=== PATIENT | female | born 1980 | race Two or more races ===

== ENCOUNTER 2020-10-20 07:19 | Outpatient (CLI) | payer OTHER | END 2020-10-20 07:33 | disposition home or self-care (01) | LOC: LAB 07:19 → EDBD 07:19 → LAB 07:33 | PROVIDERS: ATTEND Internal Medicine Rheumatology | DX: D64.89 Other specified anemias (principal); N18.2 Chronic kidney disease, stage 2 (mild); M35.89 Other specified systemic involvement of connective tissue; R70.0 Elevated erythrocyte sedimentation rate; E21.2 Other hyperparathyroidism; M81.0 Age-related osteoporosis without current pathological fracture; E06.3 Autoimmune thyroiditis; E78.2 Mixed hyperlipidemia; Z13.1 Encounter for screening for diabetes mellitus; K90.0 Celiac disease ==

== ENCOUNTER 2021-01-17 10:35 | Outpatient (CLI) | payer OTHER | END 2021-01-17 10:36 | disposition home or self-care (01) | LOC: NUCLEAR 10:35 | PROVIDERS: ATTEND Internal Medicine | DX: I11.9 Hypertensive heart disease without heart failure (principal) ==

== ENCOUNTER → 2022-07-06 | Emergency (ER) | payer OTHER ==
[~2022-07-06] VITALS: Ht 162.6 cm; Wt 112.5 kg
[~2022-07-06] MED LIST: AVAPRO300 MG PO; ROSADAN45 G1 TP; SYNTHROID200 MCG PO
== END | disposition home or self-care (01) ==
LOC: ER 15:07
DX: M25.571 Pain in right ankle and joints of right foot (principal)